=== PATIENT | female | born 1990 | race African-American/Black ===

== ENCOUNTER 2020-04-13 08:13 | Emergency (ER) | payer SELFPAY ==
--- NOTE | 2020-04-13 08:56 | RAD ---
XR Chest 1 View Portable HISTORY: Dyspnea, cough COMPARISON: None FINDINGS: The heart size is normal. The lungs are well expanded without focal areas of consolidation, pneumothorax or pleural effusions. IMPRESSION: No radiographic evidence of acute cardiopulmonary process. Plain radiographs can be falsely negative in the setting of viral pneumonia
[2020-04-13 13:22] LABS: SARS-CoV-2 PCR by NAA DETECTED (NotDetected)
== END 2020-04-13 10:13 | disposition home or self-care (01) ==
LOC: ERS 08:13
DX: U07.1 COVID-19 (principal); J00 Acute nasopharyngitis [common cold]
CPT/HCPCS: 71045; 87635; U0003; U0005